=== PATIENT | male | born 1935 | race Caucasian/White ===

== ENCOUNTER 2020-09-27 10:33 | Outpatient (CLI) | payer BC, SELFPAY | END 2020-09-27 10:34 | disposition home or self-care (01) | LOC: ANHCOVIDVC 10:33 | PROVIDERS: PCP Internal Medicine | DX: Z23 Encounter for immunization (principal) | CPT/HCPCS: 0001A; 91300 ==

== ENCOUNTER 2020-10-18 10:30 | Outpatient (CLI) | payer BC, SELFPAY | END 2020-10-18 10:31 | disposition home or self-care (01) | LOC: ANHCOVIDVC 10:31 | PROVIDERS: PCP Internal Medicine | DX: Z23 Encounter for immunization (principal) | CPT/HCPCS: 0002A; 91300 ==

== ENCOUNTER 2021-12-12 09:18 | Outpatient (CLI) | payer BC, SELFPAY ==
--- NOTE | ~2021-12-12 | XR_ITS ---
EXAMINATION: XR chest 2V DATE: 12/12/2021 09:37 INDICATION: Chest pain after fall TECHNIQUE: AP and lateral views of the chest are obtained. COMPARISON: 09/14/2018 FINDINGS: There is symmetric scarring of the lung apices. The lungs are free of acute opacities. Ther e is no pleural effusion or pneumothorax. The cardiomediastinal silhouette is normal. There is mild t horacic spondylosis. IMPRESSION: 1. No acute cardiopulmonary abnormality. Reviewed, dictated and finalized at location A.
--- NOTE | ~2021-12-12 | XR_ITS ---
EXAMINATION: XR shoulder LT min 2V DATE: 12/12/2021 09:38 INDICATION: Left shoulder pain. TECHNIQUE: 5 views of left shoulder were obtained. COMPARISON: None. FINDINGS: Bone alignment is normal. No fracture. There is mild osteoarthritis of acromioclavicular joy int and severe osteoarthritis of glenohumeral joint. IMPRESSION: 1. Polyarticular osteoarthritis. Reviewed, dictated and finalized at location B.
== END 2021-12-12 09:19 | disposition home or self-care (01) ==
PROVIDERS: PCP Internal Medicine; Visit Provider Internal Medicine
DX: S49.92XA Unspecified injury of left shoulder and upper arm, initial encounter (principal); M47.814 Spondylosis without myelopathy or radiculopathy, thoracic region; M19.012 Primary osteoarthritis, left shoulder
CPT/HCPCS: 71046; 73030

== ENCOUNTER 2023-09-21 22:46 | Emergency (ER) | payer BC, SELFPAY ==
--- NOTE | ~2023-09-21 | XR_ITS ---
XR chest 1V portable 09/22/2023 02:42 Indication: Syncope. Fall. Procedure: AP portable chest Comparison: Comparison to multiple prior studies sequentially, with oldest reviewed study dated 12/20. Findings: Heart size normal. No focal air space disease, pulmonary edema, pleural effusion or suspect ed pneumothorax. The lungs are hyperinflated which is consistent with, but not diagnostic of chronic obstructive pulmonary disease. Impression: 1: No acute cardiopulmonary disease. Reviewed, dictated and finalized at location A. ON FURNACE OPERATOR Impression: 1: No acute cardiopulmonary disease.
--- NOTE | ~2023-09-21 | CT_ITS ---
EXAMINATION: CT brain wo con DATE: 09/22/2023 03:13 INDICATION: Status post fall. Syncope. TECHNIQUE: Computed tomography (CT) of the head was performed without intravenous contrast. The dose- length product was 756.67 mGy-cm. Automated exposure control and iterative reconstruction technique w ere employed. COMPARISON: None FINDINGS: Generalized atrophy. There are scattered mild periventricular and subcortical white matter changes, most likely related to small vessel ischemic disease (microangiopathy). No acute intracrania l hemorrhage, infarction, mass or mass effect. Midline sagittal images are unremarkable. Paranasal si nuses and mastoids are pneumatized. No depressed skull fractures. Mild right frontal scalp swelling. IMPRESSION: 1. No acute intracranial abnormality. Reviewed, dictated and finalized at location A. LE ROUNDER OPERATOR
--- NOTE | ~2023-09-21 | CT_ITS ---
EXAMINATION: CT cervical spine wo con DATE: 09/22/2023 03:13 INDICATION: Status post fall. Syncope. TECHNIQUE: Computed tomography (CT) of the cervical spine was performed without intravenous contrast. The dose-length product was 400 mGy-cm. Automated exposure control and iterative reconstruction tech nique were employed. COMPARISON: None FINDINGS: There is mild dextrocurvature. There is disc narrowing and endplate degenerative change at all cervical levels. Straightening of cervical lordosis. Craniovertebral junction is normal. No evide nce for perched facet. Lung apices are unremarkable. There is multilevel uncinate hypertrophy. No sig nificant paraspinal soft tissue abnormality. Odontoid process is normal. IMPRESSION: 1. No acute abnormality of the cervical spine. 2: Severe cervical spondylosis. Reviewed, dictated and finalized at location A. RACTIVE MEDIA MARKETING DIRECTOR
[2023-09-21 22:49] VITALS: BP 166/67; PULSE 61; RESP 13; TEMP 36.2; O2SAT 97
--- NOTE | 2023-09-21 22:49 | ECG_ITS ---
Measurements Intervals [place] Rate: 63 P: -34 OK: 146 QRS: 16 QRSD: 88 T: 42 QT: 426 QTc: 438 Interpretive Statements SINUS RHYTHM WITH FREQUENT VENTRICULAR PREMATURE COMPLEXES IN A BIGEMINAL PATTERN MINIMAL ST DEPRESSION [0.025+ mV ST DEPRESSION] ABNORMAL ECG COMPARED TO ECG 09/14/2018 14:17:56 ST (T WAVE) DEVIATION NOW PRESENT Electronically Signed On 09-22-2023 14:39:54 CELLAR PACKER by Nolan Tracey M.D.
[2023-09-21 22:56] VITALS: PULSE 61; O2SAT 98
[2023-09-21 23:03] VITALS: BP 149/82; PULSE 61; RESP 22; O2SAT 98
[2023-09-21 23:18] VITALS: BP 161/74; PULSE 60; RESP 18; O2SAT 98
[2023-09-21 23:19] VITALS: PULSE 59; RESP 15; O2SAT 98
[2023-09-21 23:52] VITALS: PULSE 61; RESP 19; O2SAT 100
[2023-09-22 00:16] LABS: Basophils Absolute Auto 0.1 K/mm3 (0.0-0.1); Basophils Percent Auto 0.8 % (0.2-1.2); Eosinophils Absolute Auto 1.5 K/mm3 (0-0.3); Eosinophils Percent Auto 14.1 % (0-4.4); Hematocrit 40.4 % (42.0-52.0); Hemoglobin 13.5 g/dL (14.0-18.0); Immature Granulocyte Absolute 0.04 K/mm3 (0.00-0.031); Immature Granulocyte Percent A 0.4 % (0-0.5); Lymphocytes Absolute Auto 2.65 K/mm3 (0.9-3.2); Lymphocytes Percent Auto 24.4 % (18.3-44.2); Mean Corpuscular HGB Conc 33.4 g/dl (32-36); Mean Corpuscular Hemoglobin 31.5 pg (26-34); Mean Corpuscular Volume 94.4 fl (80-100); Mean Platelet Volume 11.3 fl (7.4-10.4); Monocytes Absolute Auto 0.8 K/mm3 (0.1-0.6); Monocytes Percent Auto 7.1 % (2.6-8.5); Neutrophils Absolute Auto 5.8 K/mm3 (1.3-6.7); Neutrophils Percent Auto 53.2 % (45.5-73.1); Platelet Count Result 162 k/mm3 (150-375); Red Blood Count 4.28 M/mm3 (4.6-6.20); Red Cell Distribution Width 12.3 % (11.5-14.5); White Blood Count 10.8 K/mm3 (4.5-10.0)
[2023-09-22 00:25] LABS: Alanine Aminotransferase 14 U/L (6-50); Albumin Level 3.9 g/dL (3.5-5.1); Alkaline Phosphatase 75 U/L (38-126); Anion Gap 5 mmol/L (8-16); Aspartate Amino Transferase 25 U/L (17-59); Bilirubin,Total 0.5 mg/dL (0.2-1.3); Blood Urea Nitrogen 27 mg/dL (9-20); Carbon Dioxide 29 mmol/L (22-30); Chloride 103 mmol/L (98-107); Estimated CRCL calculation 35 ml/min; Estimated Glomerular Filt Rate 44; Glucose 127 mg/dL (65-110); Sodium 137 mmol/L (137-145)
[2023-09-22 00:45] VITALS: BP 134/89; PULSE 68; RESP 16; O2SAT 100
--- NOTE | 2023-09-22 01:12 | PC.NURSE ---
pt family member stopped this RN to ask about the wait time and how much longer until a edp was able to see them. this rn educated patient on physicians that were here and that blood was drawn, provider is aware of patient in the er, and ekg was done for pt. pt visitor stated I wish I would have never come here this is ridiculous . pt had removed c collar and refused to put it back on. this rn adjusted blood pressure cuff and ran a new set of vitals for pt. pt was able to speak in clear and concise sentences and was in no distress at this time.
[2023-09-22 01:30] VITALS: BP 150/80; PULSE 67; RESP 16; O2SAT 98
[2023-09-22] MEDS: SODIUM CHLORIDE 0.9% IV 1,000 ML 999 ML IV CONT (01:52)
--- NOTE | 2023-09-22 01:54 | PC.NURSE ---
pt refused to keep blood pressure cuff on. this rn educated pt on importance of pt wearing vital equipment. pt nodded. this rn reapplied blood pressure cuff and o2 sensor.
[2023-09-22 02:16] VITALS: BP 147/84; PULSE 59; RESP 18; O2SAT 99
[2023-09-22 02:31] VITALS: BP 139/107; PULSE 62; RESP 13; O2SAT 99
[2023-09-22 03:29] LABS: NT Pro B Type Natriuretic Pept 181 pg/mL (19.9-100); Troponin I < 0.012 ng/mL (0.000-0.034)
--- NOTE | 2023-09-22 04:11 | PC.NURSE ---
pt family member verbalized that they were extremely frustrated with the wait time Pt family member stated that they were ready to leave and did not want to wait any longer. this rn notified edp dr. silverman and charger joy.
--- NOTE | 2023-09-22 04:11 | ED.GENADULT ---
HPI - General Adult General Chief complaint: Syncope Stated complaint: syncope Time Seen by Provider: 09/22/23 01:22 History of Present Illness HPI narrative: This is an 87-year-old male presenting ED for syncope. Patient does not remember the events of the fall. He can provide very little useful information during the interview. He has no complaints at this time. Patient's is at bedside and said that the patient took Ambien and then walked to the bathroom. When he was trying to urinate he then fell into the shower. She then called ambulance and was brought to the hospital. Related Data Home Medications Medication Instructions Recorded Confirmed aspirin 81 mg tablet,delayed 81 mg PO 07/21/19 09/18/23 release cranberry 400 mg capsule 400 mg PO DAILY 07/21/19 09/18/23 mecobalamin (vitamin B12) 1,000 1,000 mcg sublingual DAILY 07/21/19 09/18/23 mcg disintegrating tablet,sublingual omega-3 fatty acids 1,000 mg 2,000 mg PO BID 07/28/19 09/18/23 capsule (Fish Oil Concentrate) Allergies Allergy/AdvReac Type Severity Reaction Status Date / Time cephalexin Allergy Unknown unknown Verified 09/18/23 11:46 Penicillins Allergy Unknown Unknown Verified 09/18/23 11:46 [facility] Past Medical History Medical History Abnormal finding of blood chemistry BMI 23.0-23.9, adult BMI 24.0-24.9, adult BMI 25.0-25.9,adult Cardiac arrhythmia Chronic fatigue Chronic kidney disease, stage 2 (mild) Chronic right shoulder pain CKD (chronic kidney disease) Creatinine elevation Dark stools DM type 2 (diabetes mellitus, type 2) Encounter for Medicare annual wellness exam Encounter for routine adult health examination with abnormal findings Encounter for routine adult health examination without abnormal findings Follow up Gastrointestinal hemorrhage History of supraventricular tachycardia Hx of colonic polyps Hx of unilateral nephrectomy Injury by nail Memory impairment Personal history of nicotine dependence SVT (supraventricular tachycardia) Unintentional weight loss Vitamin D deficiency Family History Family History Mother Diabetes mellitus Hypertension Family history of diabetes mellitus in first degree relative Other Family history of malignant neoplasm of kidney Social History Social History Smoking status: Former smoker Smoking end date: 07/30/89 Alcohol intake: current Lack of Transportation: No Lack of Food: Never True Current Housing: I Have Housing Concerned About Future Housing: No Difficulty Paying Gas/Electric Bills: No Difficulty Paying for Meds: No Currently Unemployed: No Education: Bachelor's Degree Difficulty w/ Childcare or Family Care: No Living arrangements: with family Gender identity (if verbalized by the patient): Male Exam Narrative: APPEARANCE: No apparent distress. Head: atraumatic. EYES: EOMI, NOSE: Atraumatic NECK: Trachea midline RESPIRATORY: No increased rate of breathing CTAB CARDIOVASCULAR: RRR, no edema ABDOMINAL: Non-distended soft nontender MUSCULOSKELETAl: No obvious deformities NEURO: Alert.Cranial nerves 2-12 grossly intact. Sensation light touch, motor function cerebellar function intact for 4 extremities. Gait exam was Deferred SKIN:: Warm, dry. Normal color PSYCHIATRIC: Normal affect Course Vital Signs Vital signs: Vital Signs Temperature 97.2 F L 09/21/23 22:49 Pulse Rate 61 09/21/23 22:49 Respiratory Rate 13 09/21/23 22:49 Blood Pressure 166/67 H 09/21/23 22:49 Pulse Oximetry 97 09/21/23 22:49 Oxygen Delivery Room Air 09/21/23 22:49 Temperature 97.2 F L 09/21/23 22:49 Pulse Rate 62 09/22/23 02:31 Respiratory Rate 13 09/22/23 02:31 Blood Pressure 139/107 H 09/22/23 02:31 Pulse Oximetry 99 09/22/23 02:31 Oxygen Deliv
== END 2023-09-22 04:18 | disposition left against medical advice (07) ==
PROVIDERS: Emergency Provider Emergency Medicine; PCP Internal Medicine
DX: R55 Syncope and collapse (principal); F03.90 Unspecified dementia, unspecified severity, without behavioral disturbance, psychotic disturbance, mood disturbance, and anxiety; E11.22 Type 2 diabetes mellitus with diabetic chronic kidney disease; N18.2 Chronic kidney disease, stage 2 (mild); E55.9 Vitamin D deficiency, unspecified; Z86.010 Personal history of colon polyps; Z87.891 Personal history of nicotine dependence; Z90.5 Acquired absence of kidney; Z79.82 Long term (current) use of aspirin; Z79.84 Long term (current) use of oral hypoglycemic drugs
CPT/HCPCS: 36415; 70450; 71045; 72125; 80053; 83880; 84484; 85025; 93005; 96360; 96361; 99284; J7030

== ENCOUNTER 2023-10-02 14:34 | Outpatient (CLI) | payer BC, SELFPAY ==
--- NOTE | ~2023-10-02 | MR_ITS ---
EXAMINATION: MR brain/brain stem wo/w con DATE: 10/02/2023 15:32 INDICATION: Amnesia TECHNIQUE: Magnetic resonance imaging (MRI) of the brain and brainstem was performed without and with 15 mL Multihance intravenous contrast. Sequences included sagittal and axial T1-weighted SE, axial d iffusion-weighted FS SE, axial 3D SWAN, axial T2-weighted FLAIR, and axial T2-weighted FSE. Postcontr ast axial and coronal T1-weighted SE was obtained. Apparent diffusion coefficient (ADC) maps were cre ated. COMPARISON: None. FINDINGS: There are no areas of restricted diffusion to suggest acute infarction. No intracranial hemorrhage or abnormal intracranial mass lesion. There are scattered areas of nonspecific increased T2-weighted si gnal intensity in the cerebral white matter, predominantly involving the deep and periventricular whi te matter. There are no intraparenchymal signal abnormalities seen on the other pulse sequences. Symm etric prominence of the sulci and ventricles consistent with moderate age-appropriate diffuse cerebra l volume loss. There are no abnormal extra-axial fluid collections. Flow voids are seen in the cerebr al arteries on the T2-weighted sequences consistent with their expected patency. Left vertebral arter y is dominant. Changes of bilateral intraocular lens replacement. Visualized orbits and soft tissues are unremarkable. There are no areas of abnormal enhancement on the post contrast images. IMPRESSION: 1. No acute intracranial process or abnormally enhancing brain lesions. 2. Age-related changes including moderate diffuse volume loss and mild scattered calcific white matte r T2 hyperintensity consistent with chronic small vessel ischemic disease. Reviewed, dictated and finalized at location A. ADING MACHINE OPERATOR IMPRESSION: 1. No acute intracranial process or abnormally enhancing brain lesions. 2. Age-related changes including moderate diffuse volume loss and mild scattere d calcific white matter T2 hyperintensity consistent with chronic small vessel ischemic disease.
== END 2023-10-02 14:35 | disposition home or self-care (01) ==
PROVIDERS: PCP Internal Medicine; Visit Provider Internal Medicine
DX: R41.3 Other amnesia (principal); R41.89 Other symptoms and signs involving cognitive functions and awareness
CPT/HCPCS: 70553; A9577

== ENCOUNTER 2024-05-13 11:13 | Outpatient (CLI) | payer BC, SELFPAY ==
--- NOTE | ~2024-05-13 | US_ITS ---
RIGHT LOWER EXTREMITY VENOUS ULTRASOUND Ordering provider: Wale Quiñones MD History: . M79.191 - Pain in right lower leg . Comparison: None. FINDINGS: --COMMON FEMORAL: Patent and free of thrombus. Normal compressibility, phasic flow and augmentation. --PROXIMAL SUPERFICIAL FEMORAL: Patent and free of thrombus. Normal compressibility, phasic flow and augmentation. --DISTAL SUPERFICIAL FEMORAL: Patent and free of thrombus. Normal compressibility, phasic flow and au gmentation. --POPLITEAL: Patent and free of thrombus. Normal compressibility, phasic flow and augmentation. --POSTERIOR TIBIAL: Patent and free of thrombus. Normal compressibility, phasic flow and augmentation . IMPRESSION: Negative right lower extremity venous US. No deep vein thrombosis. Reviewed, dictated and finalized at location A.
== END 2024-05-13 11:14 | disposition home or self-care (01) ==
LOC: ANHIMG 11:14
PROVIDERS: PCP Internal Medicine; Visit Provider Internal Medicine
DX: M79.661 Pain in right lower leg (principal)
CPT/HCPCS: 93971